=== PATIENT | female | born 1960 | race Caucasian/White ===

== ENCOUNTER 2020-04-08 06:06 | Inpatient (IN) ==
[~2020-04-08 06:06] MED LIST: ceFAZolin 1,000 MG, Sodium Chloride IRRigation 1,000 ML IR ONE
[2020-04-08] MEDS ORDERED: CeFAZolin Syr 2,000MG/20 ML 2,000 MG/20 ML SYRINGE IVPB ONE (06:34)
[2020-04-08] MEDS ORDERED: Ringers Solution, Lactated 1,000 ML IVC SCH (06:45)
[2020-04-08] MEDS ORDERED: *HR* FentaNYL (PF) 100 MCG/2 ML VIAL ONE ×2 (07:07→08:48)
[2020-04-08] MEDS ORDERED: *HR* Rocuronium Bromide 50 MG/5 ML VIAL ONE ×3 (07:07→11:07)
[2020-04-08] MEDS ORDERED: *HR* Succinylcholine 200 MG/10 ML VIAL IVP ONE (07:07)
[2020-04-08] MEDS ORDERED: Lidocaine -MPF 2% 2 ML VIAL ONE ×2 (07:07→07:31)
[2020-04-08] MEDS ORDERED: Lidocaine -MPF 4% 5 ML AMPUL ONE (07:07)
[2020-04-08] MEDS ORDERED: *HR* Propofol 200 MG/20 ML VIAL IVP ONE ×2 (07:08→09:28)
[2020-04-08] MEDS ORDERED: *HR* Midazolam HCl 2 MG/2 ML VIAL ONE (07:08)
[2020-04-08] MEDS ORDERED: *HR* Remifentanil 2 MG VIAL IVP ONE ×2 (07:08→09:32)
[2020-04-08] MEDS ORDERED: Heparin 1,000 UNITS/500 mL 1,000 ML ONE (07:11)
[2020-04-08] MEDS ORDERED: Heparin 1,000 UNITS/500 mL 500 ML ONE (07:11)
[2020-04-08] MEDS ORDERED: *HR* Phenylephrine 10 MG/ML VIAL ONE (07:16)
[2020-04-08] MEDS ORDERED: *HR* OxyCODONE Immed Rel 5 MG TABLET PO PRN (07:33)
[2020-04-08] MEDS ORDERED: Ondansetron 4 MG/2 ML VIAL IVP ONE (07:33)
[2020-04-08] MEDS ORDERED: Mannitol 20% 100 GM/500 ML IV.SOLN IVC ONE (07:39)
[2020-04-08] MEDS ORDERED: *HR* Heparin 5,000 UNIT/ML VIAL ONE (07:45)
[2020-04-08] MEDS ORDERED: Lacri-Lube 3.5 GM TUBE ONE (08:06)
[2020-04-08] MEDS ORDERED: Ondansetron 4 MG/2 ML VIAL ONE ×2 (09:44→11:42)
[2020-04-08] MEDS ORDERED: Dexamethasone 4 MG/ML VIAL ONE (09:44)
[2020-04-08] MEDS ORDERED: Ketamine *HR* 500 MG/10 ML MDV ONE (09:56)
[2020-04-08 11:30] LABS: ABG Base Excess -3 mEq/L (-2 to 3); ABG Chloride 105 mEq/L (98-107); ABG Glucose 180 mg/dL (60-95); ABG HCO3 23 mEq/L (21-27); ABG Oxygen Saturation 100 % (95-98); ABG PCO2 42 mmHg (35-45); ABG PH 7.34 pH Units (7.32-7.45); ABG PO2 247 mmHg (85-104); ABG TCO2 24 mEq/L (20-26)
[2020-04-08] MEDS ORDERED: Neostigmine Methylsulfate 3 MG/3 ML SYRINGE ONE (11:43)
[2020-04-08] MEDS ORDERED: *HR* HYDROMORPHONE 2 MG/ML VIAL ONE (11:56)
[2020-04-08] MEDS ORDERED: *HR* Metoprolol 5 MG/5 ML VIAL IVP ONE (11:58)
[2020-04-08] MEDS: *HR* HYDROmorphone PF 0.5 MG/0.5 ML SYRINGE IVP PRN ×4 (12:35→13:05)
[2020-04-08] MEDS ORDERED: Naloxone 0.4 MG/ML INJ IVP PRN (13:45)
[2020-04-08] MEDS ORDERED: Ondansetron 4 MG/2 ML VIAL IVP PRN (13:45)
[2020-04-08] MEDS: *HR* Labetalol 20 MG/4 ML SYRINGE IVP PRN ×2 (13:57→18:10)
[2020-04-08] MEDS: 0.9 % Sodium Chloride 1,000 ML IVC SCH (14:00)
[2020-04-08] MEDS: CeFAZolin 2 GM/120 ML BAG IVPB SCH (15:58)
[2020-04-08] MEDS: Ketorolac 30 MG/ML VIAL IVP PRN (19:41)
[2020-04-09] MEDS: CeFAZolin 2 GM/120 ML BAG IVPB SCH ×2 (00:50→07:50)
[2020-04-09] MEDS: Ketorolac 30 MG/ML VIAL IVP PRN ×3 (01:35→13:14)
[2020-04-09 04:00] LABS: Basophils % 0.1 %; Hematocrit 34.1 % (35.3-44.9); Hemoglobin 11.6 g/dL (11.5-15.4); Immature Granulocytes % 0.4 % (0-4); Lymphocytes # 1.1 K/mcL (0.6-4.6); Lymphocytes % 7.3 %; Mean Corpuscular Hemoglobin 33.6 pg (28.0-33.3); Mean Corpuscular Volume 98.8 fL (83.0-100.0); Mean Platelet Volume 9.8 fL (9.4-12.4); Monocytes # 1.1 K/mcL (0.0-1.3); Neutrophils # 13.1 K/mcL (1.6-8.9); Platelet Count 171 K/mcL (140-400); Red Blood Count 3.45 M/mcL (3.82-4.97); Red Cell Distribution Width 12.8 % (11.5-14.5); Segmented Neutrophils % 85.2 %; White Blood Count 15.4 K/mcL (4.3-11.1)
[2020-04-09 04:19] LABS: BUN/Creatinine Ratio 21 (6-26); Blood Urea Nitrogen 17 mg/dL (6-20); Calcium 7.6 mg/dL (8.6-10.3); Carbon Dioxide 23 mEq/L (23-29); Chloride 105 mEq/L (98-107); Glucose 154 mg/dL (70-105); Osmolality,Calculated 287 (280-300); Sodium 136 mEq/L (136-145); eGFR For African Americans > 60 (> 60); eGFR For Non-African Americans > 60 (> 60)
[2020-04-09 06:40] LABS: Adenovirus Not Detected (Not Detect); Bordetella Pertussis Not Detected (Not Detect); Chlamydophila pneumoniae Not Detected (Not Detect); Coronavirus 229E Not Detected (Not Detect); Coronavirus HKU1 Not Detected (Not Detect); Coronavirus NL63 Not Detected (Not Detect); Coronavirus OC43 Not Detected (Not Detect); Human Metapneumovirus Not Detected (Not Detect); Human Rhinovirus/Enterovirus Not Detected (Not Detect); Influenza A Subtype 2009 H1 Not Detected (Not Detect); Influenza B Not Detected (Not Detect); Mycoplasma pneumoniae Not Detected (Not Detect); Parainfluenza Virus 1 Not Detected (Not Detect); Parainfluenza Virus 2 Not Detected (Not Detect); Parainfluenza Virus 3 Not Detected (Not Detect); Parainfluenza Virus 4 Not Detected (Not Detect); Respiratory Syncytial Virus Not Detected (Not Detect)
[2020-04-09] MEDS ORDERED: *HR* HYDROmorphone (PF) 1 MG/ML SYRINGE IVP PRN (08:48)
[2020-04-09] MEDS: 0.9 % Sodium Chloride 1,000 ML IVC SCH ×2 (09:26)
[2020-04-09] MEDS ORDERED: 0.9 % Sodium Chloride 1,000 ML IVC SCH (09:32)
[2020-04-09] MEDS ORDERED: *HR* Labetalol 20 MG/4 ML SYRINGE IVP PRN (09:32)
[2020-04-09] MEDS ORDERED: Ondansetron 4 MG/2 ML VIAL IVP PRN (09:32)
[2020-04-09] MEDS ORDERED: Naloxone 0.4 MG/ML INJ IVP PRN (09:32)
[2020-04-10] MEDS: Ketorolac 30 MG/ML VIAL IVP PRN ×3 (00:23→20:14)
[2020-04-10] MEDS: 0.9 % Sodium Chloride 1,000 ML IVC SCH ×2 (00:24→22:43)
[2020-04-11] MEDS: Ketorolac 30 MG/ML VIAL IVP PRN ×3 (05:21→19:59)
[2020-04-11 12:04] LABS: Hematocrit 29.2 % (35.3-44.9); Hemoglobin 9.5 g/dL (11.5-15.4); Mean Corpuscular HGB Conc 32.5 g/dL (31.6-35.5); Mean Corpuscular Hemoglobin 33.5 pg (28.0-33.3); Mean Corpuscular Volume 102.8 fL (83.0-100.0); Mean Platelet Volume 10.5 fL (9.4-12.4); Platelet Count 160 K/mcL (140-400); Red Blood Count 2.84 M/mcL (3.82-4.97); Red Cell Distribution Width 12.8 % (11.5-14.5); White Blood Count 12.4 K/mcL (4.3-11.1)
[2020-04-11 12:13] LABS: BUN/Creatinine Ratio 24 (6-26); Blood Urea Nitrogen 16 mg/dL (6-20); Carbon Dioxide 18 mEq/L (23-29); Chloride 105 mEq/L (98-107); Glucose 74 mg/dL (70-105); Osmolality,Calculated 286 (280-300); Potassium 3.5 mEq/L (3.5-5.1); Sodium 138 mEq/L (136-145); eGFR For African Americans > 60 (> 60); eGFR For Non-African Americans > 60 (> 60)
[2020-04-11] MEDS: 0.9 % Sodium Chloride 1,000 ML IVC SCH (15:47)
[2020-04-12] MEDS: 0.9 % Sodium Chloride 1,000 ML IVC SCH (01:46)
[2020-04-12] MEDS: Ketorolac 30 MG/ML VIAL IVP PRN ×3 (02:00→15:10)
[2020-04-12 11:51] VITALS: BP 110/72
[2020-04-12] MEDS ORDERED: *HR* Buprenorphine HCl 8 MG TAB.SUBL SL SCH (13:45)
== END 2020-04-12 17:13 | disposition home or self-care (01) | DRG 169 ==
LOC: SAMDAY 06:06 → ICNU 13:45 → 2NNU 04-09 18:10
PROVIDERS: ADMIT Surgery Vascular Surgery; ATTEND Surgery Vascular Surgery